=== PATIENT | female | born 1965 | race American Indian/Alaskan Native ===

== ENCOUNTER 2017-10-29 21:50 | Emergency (ER) | payer MEDICAID ==
[2017-10-29] MEDS ORDERED: MORPHINE IM ONE (23:31)
[2017-10-29] MEDS ORDERED: ZOFRAN IM ONE (23:31)
--- NOTE | 2017-10-29 23:46 | Emergency Department Report ---
HPI - General Chief Complaint: Fall Time Seen by Provider: 10/29/17 23:20 - HPI HPI: Room 24 The patient is a 51-year-old female presenting with chief complaint of left lower extremity pain after fall. The patient states 2 days ago she fell down approximately 3 stairs injuring her left knee and left foot. The patient states she went to [facility] and had x-rays performed. The patient states she was initially told her x-rays were negative. The patient states yesterday the patient fell a second time while using her crutches landing on her left shoulder. The patient states she was called by [facility] yesterday and told that her x-ray revealed fractures of the toes. The patient states she has not given any follow-up at that time that was instructed that she should follow-up with an orthopedic surgeon if her pain persists greater than 3 days. Patient now complains of pain in her left lateral neck, left shoulder. The patient gives her pain is score of 9.5/10 Location: [See above] Duration: [See above] Quality: Pain Severity: 9.5/10 Modifying factors: [see above] Context: [see above] Mode of transportation: [not driving] ED Past Medical Hx - Past Medical History Hx Hypertension: Yes Hx Diabetes: Yes Additional medical history: hypothyroidism,chronic back pain - Surgical History Hx Cholecystectomy: Yes Additional Surgical History: hysterectomy,tonsillectomy,back surg. laminectomy L4-L5, parathyroidectomy - Family History Family history: no significant - Social History Smoking Status: Never Smoker Substance Use Type: None (denies illicit drug use), Alcohol (occasional) - Medications Home Medications: Home Medications Medication Instructions Recorded Confirmed Last Taken Type Cyclobenzaprine [Flexeril] 10 mg PO TID PRN #14 tablet 10/30/17 Unknown Rx HYDROcodone/APAP 5-325 [Monument 1 - 2 each PO Q6HR PRN #14 tablet 10/30/17 Unknown Rx 5/325] Ibuprofen [Motrin 800 MG tab] 800 mg PO Q8HR PRN #20 tablet 10/30/17 Unknown Rx ED Review of Systems ROS: Stated complaint: FALL Other details as noted in HPI Musculoskeletal: arthralgia, myalgia Physical Exam - Physical Exam Vital Signs: Vital Signs 10/29/17 21:53 Temperature 97.9 F Pulse Rate 96 H Respiratory 18 Rate Blood Pressure 162/99 O2 Sat by Pulse 98 Oximetry Physical Exam: GENERAL: The patient is well-developed well-nourished female lying on stretcher not appearing to be in acute distress HEENT: Normocephalic. Atraumatic. Extraocular motions are intact. Patient has moist mucous membranes. NECK: Supple. No actual step off. There is tenderness to left lateral neck CHEST/LUNGS: Clear to auscultation. There is no respiratory distress noted. HEART/CARDIOVASCULAR: Regular. There is no tachycardia. There is no gallop rub or murmur. 2+ left DP ABDOMEN: Abdomen is soft, nontender. Patient has normal bowel sounds. There is no abdominal distention. SKIN: There is no rash. There is no diaphoresis. NEURO: The patient is awake, alert, and oriented. The patient is cooperative. The patient has normal speech. Patient able to flex left lower extremity at the hip and knee MUSCULOSKELETAL: There is tenderness to the dorsum of the right foot. There is tenderness to the medial aspect of the right knee. The compartments of the left thigh and left lower extremity are soft. ED Course Vital Signs 10/29/17 21:53 Temperature 97.9 F Pulse Rate 96 H Respiratory 18 Rate Blood Pressure 162/99 O2 Sat by Pulse 98 Oximetry ED Medical Decision Making - Radiology Data Radiology results: report reviewed (CT cervical spine), image reviewed (left knee x-ray, left tib-fib x-ray, left foot x-ray, CT cervical spine) interpreted by me: Left knee x-ray-no acute fracture Left tib-fib x-ray-no acute fracture Left foot x-ray-no definite acute fracture seen. Questionable lucency through the ba of the third and fourth proximal phalanx [facility] [address] [place] [address] Cat Scan Report Signed Patient: EMELIA NEWMAN MR#: [id number] : 1965 Acct:[id number] Age/Sex: 51 / F ADM Date: 10/29/17 Loc: ED Attending Dr: Ordering Physician: SORAYA SRIVASTAVA MD Date of Service: 10/30/17 Procedure(s): CT cervical spine wo con Accession Number(s): [id number] cc: SORAYA SRIVASTAVA MD FINAL REPORT PROCEDURE: CT CERVICAL SPINE WO CON TECHNIQUE: Computerized tomography of the cervical spine was performed from the skull base to T1 without contrast material. HISTORY: pain after fall COMPARISON: No prior studies are available for comparison. FINDINGS: The skull base and foramen magnum are intact. The cervical vertebrae are intact. There is straightening of the cervical spine. C1-2: No significant abnormality. C2-3: No significant abnormality. C3-4: No significant abnormality. C4-5: No significant abnormality. C5-6: No significant abnormality. C6-7: No significant abnormality. C7-T1: No significant abnormality. Other: Facet joints are intact. There is no facet dislocation. Prevertebral soft tissues are normal in thickness. There has been a thyroidectomy.. IMPRESSION: No significant abnormality. Transcribed By: CO Dictated By: KARIME MANZANO MD Electronically Authenticated By: KARIME MANZANO MD Signed Date/Time: 10/30/17143 DD/ 3 TD/TT: 10/30/17143 - Differential Diagnosis foot fracture, tib-fib fracture, knee fracture Critical care attestation.: If time is entered above; I have spent that time in minutes in the direct care of this critically ill patient, excluding procedure time. ED Disposition Clinical Impression: Left knee pain, Left foot pain Disposition: TO HOME OR SELFCARE Is pt being admited?: No Does the pt Need Aspirin: No Condition: Stable Additional Instructions: Return to the emergency department immediately should you develop worsening symptoms, fever, inability to tolerate food or liquid or any other concerns. Prescriptions: Cyclobenzaprine [Flexeril] 10 mg PO TID PRN #14 tablet PRN Reason: Muscle Spasm HYDROcodone/APAP 5-325 [Monument 5/325] 1 - 2 each PO Q6HR PRN #14 tablet PRN Reason: Pain Ibuprofen [Motrin 800 MG tab] 800 mg PO Q8HR PRN #20 tablet PRN Reason: Pain Referrals: KORIN EVANGELISTA MD [Staff Physician] - [facility] (Dr. Evangelista is an orthopedic surgeon. Please follow-up with him for further evaluation) Time of Disposition: 01:53
[2017-10-30] MEDS ORDERED: SUBLIMAZE IV ONE (00:02)
[2017-10-30] MEDS ORDERED: DILAUDID IM ONE (01:41)
--- NOTE | 2017-10-30 01:42 | XRay Report ---
FINAL REPORT PROCEDURE: XR SHOULDER 2+V LT TECHNIQUE: Left shoulder radiographs including AP views in internal and external rotation and abduction. CPT 71075 HISTORY: shoulder pain after fall COMPARISON: No prior studies are available for comparison. FINDINGS: Fracture (s) and/or Dislocation(s): None . Joint space(s): Normal . Soft tissues: Normal . Bone mineralization: Normal . Foreign bodies: None . IMPRESSION: Normal Examination
--- NOTE | 2017-10-30 01:46 | XRay Report ---
FINAL REPORT PROCEDURE: XR TIBIA FIBULA 2V LT TECHNIQUE: LEFT tibia and fibula radiographs, AP and lateral views. CPT 04225 HISTORY: leg pain after fall COMPARISON: No prior studies are available for comparison. FINDINGS: Fracture (s) and/or Dislocation(s): None . Joint space(s): Normal . Soft tissues: Normal . Bone mineralization: Normal . Foreign bodies: None . IMPRESSION: Normal Examination.
--- NOTE | 2017-10-30 01:49 | Cat Scan Report ---
FINAL REPORT PROCEDURE: CT CERVICAL SPINE WO CON TECHNIQUE: Computerized tomography of the cervical spine was performed from the skull base to T1 without contrast material. HISTORY: pain after fall COMPARISON: No prior studies are available for comparison. FINDINGS: The skull base and foramen magnum are intact. The cervical vertebrae are intact. There is straightening of the cervical spine. C1-2: No significant abnormality. C2-3: No significant abnormality. C3-4: No significant abnormality. C4-5: No significant abnormality. C5-6: No significant abnormality. C6-7: No significant abnormality. C7-T1: No significant abnormality. Other: Facet joints are intact. There is no facet dislocation. Prevertebral soft tissues are normal in thickness. There has been a thyroidectomy.. IMPRESSION: No significant abnormality.
--- NOTE | 2017-10-30 01:53 | XRay Report ---
FINAL REPORT PROCEDURE: XR FOOT 3+V LT TECHNIQUE: LEFT foot radiographs, AP, lateral, and oblique views. CPT 95043 HISTORY: foot pain after fall. COMPARISON: No prior studies are available for comparison. FINDINGS: Fracture (s) and/or Dislocation(s): There is a nondisplaced fracture of the base of the 4th proximal phalanx. The bony structures are otherwise intact.. Alignment: Normal . Joint space(s): There is degenerative arthrosis of the 1st metatarsophalangeal joint.. Soft tissues: There is soft tissue swelling of the forefoot.. Bone mineralization: Normal . Foreign bodies: None . Calcaneal spurring: There are small calcaneal spurs.. IMPRESSION: Fracture of the 4th proximal phalanx..
[2017-10-30 02:29] VITALS: BP 154/106
== END 2017-10-30 02:20 | disposition home or self-care (01) ==
LOC: ED 21:50
DX: M25.562 Pain in left knee (principal); M79.672 Pain in left foot; I10 Essential (primary) hypertension; E11.9 Type 2 diabetes mellitus without complications; Z90.49 Acquired absence of other specified parts of digestive tract; M54.9 Dorsalgia, unspecified; G89.29 Other chronic pain; E03.9 Hypothyroidism, unspecified
CPT/HCPCS: 72125; 73030; 73590; 73630; 96372; 96374; 99284; J1170; J2405; J3010

== ENCOUNTER 2018-04-12 22:46 | Emergency (ER) | payer MEDICAID | END 2018-04-13 00:05 | disposition left against medical advice (07) | LOC: ED 22:46 | DX: R10.9 Unspecified abdominal pain (principal); Z53.21 Procedure and treatment not carried out due to patient leaving prior to being seen by health care provider ==